=== PATIENT | male | born 1975 | race African-American/Black ===

== ENCOUNTER 2016-12-18 03:12 | Emergency (ER) | payer SELFPAY ==
[2016-12-18 03:11] LABS: INFLUENZA A NEG (NEG); INFLUENZA B NEG (NEG)
[~2016-12-18 03:12] MED LIST: GLUCOPHAGE500 M1 PO; GLUCOTROL PO; LIPITOR PO
== END 2016-12-18 03:28 | disposition home or self-care (01) ==
LOC: SED 03:12
PROVIDERS: Emergency Medicine
DX: R05 Cough (principal); R50.9 Fever, unspecified; R51 Headache; E11.9 Type 2 diabetes mellitus without complications; I10 Essential (primary) hypertension; F17.200 Nicotine dependence, unspecified, uncomplicated
CPT/HCPCS: 87804; 99283